=== PATIENT | female | born 1975 | race Caucasian/White ===

== ENCOUNTER 2024-07-31 22:43 | Emergency (ER) | payer OTHER, SELFPAY ==
[2024-07-31 22:43] VITALS: BMI 23.7
[2024-07-31 22:51] VITALS: BP 151/94
[2024-07-31 23:08] LABS: % Basophils 0.5 % (0-2); % Eosinophils 1.1 % (0-6); % Immature Granulocytes 0.4 % (0-0.5); % Monocytes 7.4 % (1.7-9.3); % Neutrophils 49.6 % (42.2-75.2); Absolute Eosinophils 0.1 10^3/uL (0-0.7); Absolute Lymphocytes 3.4 10^3/uL (1.2-3.4); Absolute Monocytes 0.6 10^3/uL (0.1-0.6); Absolute Neutrophils 4.1 10^3/uL (1.4-6.5); Hematocrit 35.6 % (37.0-47.0); Hemoglobin 11.7 g/dL (12.0-16.0); Mean Corp Hgb Conc. 32.9 g/dL (33.0-37.0); Mean Corpuscular Hgb 28.3 pg (27.0-31.0); Mean Corpuscular Volume 86.2 fL (81.0-99.0); Mean Platelet Volume 10.2 fL (7.4-10.4); Nucleated Red Blood Cells % 0 %; Platelet Count 321 10^3/uL (130-400); Red Blood Cell Count 4.13 10^6/uL (4.20-5.40); Red Cell Dist. Width 13.7 % (11.5-14.5); White Blood Cell Count 8.2 10^3/uL (4.8-10.8)
[2024-07-31 23:26] LABS: ALT (SGPT) 15 U/L (0-35); AST (SGOT) 19 U/L (14-36); Albumin 4.4 g/dl (3.5-5.0); Alkaline Phosphatase 67 U/L (38-126); Blood Urea Nitrogen 17 mg/dl (7-17); Calcium 9.9 mg/dl (8.4-10.2); Carbon Dioxide 22 mmol/L (22-30); Chloride 102 mmol/L (98-107); Glucose 110 mg/dl (70-99); Potassium 3.6 mmol/L (3.5-5.1); Sodium 134 mmol/L (135-145); Total Bilirubin 0.4 mg/dl (0.2-1.3); eGFR > 60.00
[2024-07-31 23:33] LABS: Troponin I < 0.012 ng/ml
[2024-07-31 23:38] VITALS: BP 129/102
[2024-08-01] VITALS: BP 122/85
--- NOTE | 2024-08-01 00:08 | ED.GENMED ---
History of Present Illness
General
Chief Complaint: Chest Pain
Source: patient and spouse
Exam Limitations: none
Time Seen by Provider: 07/31/24 23:46
Nursing documentation reviewed up to this point in time: agreed with
History of Present Illness
History of Present Illness:
This is a 49-year-old woman who has no significant past medical history save for recent diagnosis of borderline hypertension. She takes no medicines on a daily basis. She and her are staying in a hotel room with [place] this weekend, she
admits to consuming rich foods and several alcoholic drinks yesterday, had not been drinking as much fluid throughout the day today and while they were out to dinner tonight eating appetizers and after consuming tomato soup and 1 alcoholic drink she
suddenly began not feeling well, initially with some lightheadedness, nausea. Went outside of the restaurant to get some air and upon returning to the table, symptoms persisted with onset of substernal chest pain with waves of increased pain with
intermittent radiation to bilateral shoulders and bilateral arms. She admits to frequent burping and notes burping seems to improve/temporize her chest pain.
She admits to feeling shaky/tremulous but has not been running a fever, no shortness of breath. Pain is not worsened when she takes a deep breath. No abdominal pain. She admits to nausea but no vomiting.
No history of similar episodes in the past.
Last menstrual period 2 weeks ago, normal and on time. Denies risk of .
Past History
Past History
ED Past Medical History: None
ED Past Surgical History: Gynecological (Uterine myomectomy)
Social History
Tobacco: Non-smoker
Alcohol: Occasional
Drug: None
Personal:
Living: with family
Family History
Family History: CAD (Grandfather)
Phy Exam
Physical Exam
Physical Exam:
GENERAL: 49-year-old woman appears her stated age, awake and alert, pleasant, appears mildly anxious, easily communicative. is accompanying.
EYE: anicteric
NECK: Supple, nontender, no meningismus, no significant adenopathy.
ENT: oral mucosa is moist. No rhinorrhea.
CARDIAC: Regular rate and rhythm. no murmur. No chest wall tenderness.
LUNGS: Clear breath sounds bilaterally, no acute respiratory distress, no wheezes/rales/rhonchi
ABDOMEN: Soft, nondistended, without focal tenderness, no r/g, no cvat. normoactive BS.
NEUROLOGICAL: Alert and oriented x3, no focal neuro deficits.
SKIN: Warm and dry, normal color, skin intact. No rash.
MUSCULOSKELETAL: No C/C/E. peripheral pulses are full and equal b/l. No palpable tenderness.
PSYCH: Normal and appropriate interaction.
Scores
Heart Score for Chest Pain Patients
STEMI patient?: No
History: Slightly or Non-Suspicious
ECG: Nonspecific Repolarization
Age: >45 - <65 years
Risk Factors: No Risk Factors
Troponin: </= Normal Limit
Heart Score for Chest Pain Patients: 2
Heart Score Risk: 2.5% MACE over next 6 weeks
Course
Orders/Labs/Results
Orders:
Orders
07/31/24 22:43
EKG [Electrocardiogram (*1)] Urgent
Reason for Study: Chest Pain
07/31/24 22:44
EKG- Treatment ONCE
07/31/24 23:00
Complete Blood Count/With Diff Urgent
Comprehensive Metabolic Panel Urgent
Troponin I Urgent
08/01/24 00:05
0.9% Sodium Chloride 1000 ml [Nss] 1,000 ml IV BOLUS
Ondansetron Injectable [Zofran] 4 mg IV NOW STA
Pantoprazole [Protonix IV] 40 mg IV NOW STA
CR Chest - 2 Views Urgent
Comment:
Reason For Exam: acute CP, nausea
08/01/24 00:07
EKG- Treatment ONCE
08/01/24 01:23
Lorazepam [Ativan] 0.25 mg IV NOW STA
08/01/24 01:30
Electrocardiogram (*1) Urgent
Reason for Study: Chest Pain
08/01/24 01:39
Troponin I Urgent
08/01/24 03:40
Sucralfate Suspension [Carafate Suspension] 1 gm PO NOW STA
Abnormal Lab Results
07/31/24
23:00
RBC 4.13 L 10^6/uL
(4.20-5.40)
Hgb 11.7 L g/dL
(12.0-16.0)
Hct 35.6 L %
(37.0-47.0)
MCHC 32.9 L g/dL
(33.0-37.0)
Sodium 134 L mmol/L
(135-145)
Glucose 110 H mg/dl
(70-99)
07/31/24 23:00
07/31/24 23:00
Vital Signs
Initial and Last Documented VS:
Initial Vital Signs
Temp Pulse Resp BP Pulse Ox
97.3 F 87 18 151/94 100
07/31/24 22:51 07/31/24 22:51 07/31/24 22:51 07/31/24 22:51 07/31/24 22:51
Last Documented Vital Signs
Temp Pulse Resp BP Pulse Ox
97.3 F 90 15 129/102 100
07/31/24 22:51 07/31/24 23:38 07/31/24 23:38 07/31/24 23:38 07/31/24 23:38
MDM/Problems Addressed
Differential Diagnosis Includes:
Concern for ACS, GERD, arrhythmia, pneumonia. This and other entities considered.
Abdomen is soft without appreciable tenderness thus biliary colic, pancreatitis are unlikely.
Thus far EKG shows mild sinus tachycardia at 102, minimal global ST depression. No old EKGs to compare.
Monitor shows normal sinus rhythm without ectopy.
Labs thus far unremarkable including negative troponin.
Will plan to repeat troponin and EKG.
Will check chest x-ray.
It is somewhat reassuring that burping tends to relieve her symptoms and thus I suspect an element of GERD. Will give an IV dose of Protonix, IV Zofran, IV fluids.
Will consider GI cocktail.
*Radiology
Radiology exam reviewed: preliminary read by ED provider (Chest x-ray is unremarkable. Clear lung velazquez. Normal heart size.)
*Pulse Oximetry
Patient hypoxic: no
*EKG
Interpreted by ED Provider?: Yes
Comparison EKG: no comparison EKG present
Heart Rate: 102
Rate: tachycardiac
Rhythm: sinus
[place]: normal axis
Interval: normal interval
QRS Pattern: normal QRS
Ischemia: non-specific ST changes
*[employer] Interpretation
Rate: normal
Interpretation: normal
Rhythm: sinus
*Critical Care Note
Total Time (30-74mins, 75-104mins- exclusive of procedures): Not Applicable
Update Note
Update Note:
03:40
Patient resting comfortably.
She reports near complete relief of chest discomfort, continues with very mild intermittent lower substernal chest discomfort.
Repeat EKG is unremarkable/within normal limits. Repeat troponin remains flat.
Chest x-ray is unremarkable.
I highly suspect acute GERD as cause for chest discomfort. Will give a dose of Carafate and plan for discharge to home with recommendations to avoid further alcohol, avoid caffeinated beverages, avoid spicy or fried foods at least over the next
several days.
Prompt follow-up with PCP for recheck.
ED Attending Note
-
Portions of this chart may have been created with voice recognition software.� Occasional wrong word or��sound alike� substitutions may have occurred due to the inherent limitations of voice recognition software.
Discharge Plan
Departure
Patient Disposition: Home (Routine Discharge)
Date of Disposition: 08/01/24
Time of Disposition: 03:56
Patient with high blood pressure during this ER visit?: Yes
Condition: Good
Discharge Problem:
acute GERD
Instructions: Acid Reflux and GERD in Adults (DC), Chest Pain PCP Follow Up, BLOOD PRESSURE
Referrals:
UNKNOWN - PT DOES,NOT KNOW [Family Provider] -
Interventions
Interventions:
*Risk Screen - Suicide Last Done: 07/31/24 22:54
*General Assessment Last Done: 07/31/24 22:54
*Neglect/Abuse Screening Last Done: 07/31/24 22:54
*ED COVID-19 Vaccine History Last Done: 07/31/24 22:54
ED- Cardiac Assessment Last Done: 07/31/24 23:50
Discharge Date and Time
Print Language: EQUATORIAL GUINEAN
[2024-08-01] MEDS: NSS 1000 IV (00:30)
[2024-08-01] MEDS: ZOFRAN 4 MG IV (00:32)
[2024-08-01] MEDS: PROTONIX IV 40 MG IV (00:36)
[2024-08-01] MEDS: ATIVAN 0.25 MG IV (01:34)
[2024-08-01 03:08] VITALS: BP 110/75
[2024-08-01 03:15] LABS: Troponin I < 0.012 ng/ml
[2024-08-01] MEDS: CARAFATE SUSPENSION 1 GM PO (03:55)
== END 2024-08-01 04:24 | disposition home or self-care (01) ==
LOC: EMR 22:43
PROVIDERS: Emergency Medicine; EMERGENCY PHYSICIAN Emergency Medicine
DX: R07.89 Other chest pain (principal); K21.9 Gastro-esophageal reflux disease without esophagitis; Z82.49 Family history of ischemic heart disease and other diseases of the circulatory system
CPT/HCPCS: 99283; 96374; 96375; 71046; 80053; 84484; 85025; 93005